=== PATIENT | male | born 1985 | race Caucasian/White ===

== ENCOUNTER 2021-03-21 12:19 | Emergency (ER) | payer OTHER ==
[2021-03-21] MEDS ORDERED: ZESTRIL10 M1 PO (12:29)
[2021-03-21] MEDS ORDERED: CLONIDINE HYDR0.1 MG PO (12:29)
[2021-03-21] MEDS ORDERED: PREDNISONE20 MG PO (13:12)
[2021-03-21 13:16] VITALS: BP 120/82
[2021-03-21] MEDS ORDERED: CYCLOBENZAPRINE10 M1 PO (13:20)
== END 2021-03-21 13:17 | disposition home or self-care (01) ==
LOC: ED 12:19
DX: G89.29 Other chronic pain (principal); M54.50 Low back pain, unspecified

== ENCOUNTER → 2021-05-14 | Outpatient (CLI) | payer BC ==
[~2021-05-14] MED LIST: CLONIDINE HYDR0.1 MG PO; CYCLOBENZAPRINE10 M1 PO; PREDNISONE20 MG PO; ZESTRIL10 M1 PO
[2021-05-14 13:31] LABS: POTASSIUM 4.1 mmol/L (3.5-5.1)
[2021-05-14 13:32] LABS: ALBUMIN 4.5 g/dL (3.5-5.0); CALCIUM 9.8 mg/dL (8.3-10.5); TOTAL PROTEIN 7.5 g/dL (6.4-8.3)
[2021-05-14 13:42] LABS: HEMOGLOBIN 17.3 g/dL (13.5-18.0); RED BLOOD COUNT 5.18 M/mm3 (4.20-5.60); WHITE BLOOD COUNT 5.2 K/mm3 (4.8-10.8)
[2021-05-14 13:43] LABS: MEAN CELL VOLUME 93 fl (78-100); MEAN CORPUSCULAR HEMOGLOBIN 33 pg (27-31); MEAN CORPUSCULAR HGB CONC 36 g/dL (33-37); MEAN PLATELET VOLUME 11.1 fl (7.4-10.4); PLATELET COUNT 199 K/mm3 (130-400); RED CELL DISTRIBUTION WIDTH 11.9 % (11.5-14.5)
[2021-05-14 13:45] LABS: BASO # 0.03 K/mm3 (0.02-0.10); EOS # 0.05 K/mm3 (0.04-0.40); LYMPH# 1.87 K/mm3 (1.50-4.00); MONO # 0.53 K/mm3 (0.20-0.80); NEU # 2.76 K/mm3 (1.40-6.50)
== END ==
LOC: LAB 09:48
PROVIDERS: Family Medicine
DX: Z00.00 Encounter for general adult medical examination without abnormal findings (principal); M51.36 Other intervertebral disc degeneration, lumbar region; E78.5 Hyperlipidemia, unspecified; R73.9 Hyperglycemia, unspecified

== ENCOUNTER → 2021-05-30 | Day surgery (SDC) | payer BC | LOC: MSO 07:25 | DX: K92.1 Melena (principal); K59.00 Constipation, unspecified; R19.7 Diarrhea, unspecified; Z79.899 Other long term (current) drug therapy | CPT/HCPCS: 00811; J2704; J7120 ==

== ENCOUNTER → 2022-06-26 | Outpatient (CLI) | payer OTHER | LOC: LAB 11:26 | DX: R63.5 Abnormal weight gain (principal) ==

== ENCOUNTER → 2022-12-10 | Outpatient (CLI) | payer OTHER | LOC: LAB 09:57 | DX: M25.50 Pain in unspecified joint (principal) ==

== ENCOUNTER → 2024-01-28 | Outpatient (CLI) | payer SELFPAY ==
[~2024-01-28] MED LIST changes: +DULOXETINE30 MG PO; +LOSARTAN POTASS1 TA1 PO
[2024-01-28 11:06] LABS: HEMATOCRIT 46.3 % (42.0-52.0); HEMOGLOBIN 16.6 g/dL (13.5-18.0)
== END ==
LOC: LAB 09:58
PROVIDERS: Nurse Practitioner
DX: E83.110 Hereditary hemochromatosis (principal)

== ENCOUNTER → 2024-02-11 | Outpatient (RCR) | payer OTHER ==
[2024-01-28 10:15] VITALS: BP 156/92
--- NOTE | 2024-01-28 12:08 | NUR ---
PT ARRIVED FOR OUTPATIENT PHLEBOTOMY. PT VERY NERVOUS. STATES HE HAS A NEEDLE PHOBIA. REQUESTS NUMBING UP THE IV SITE PRIOR TO INSERTION. ORDER OBTAINED AND LIDOCAINE TOPICAL JELLY APPLIED TO RT AC. #[id number] IV NEEDLE INSERTED ON FIRST ATTEMPT BY Xenia BOYD RN USING ASEPTIC TECHNIQUE. BLOOD DRAWN FROM IV FOR H&H PRIOR TO THERAPEUTIC PHLEBOTOMY AND TAKEN TO LAB. HGB 16.6 HCT 46.3. 500ML BLOOD TAKEN OFF FOR PHLEBOTOMY. PT MADELIN WELL. VSS. INT REMOVED AND PRESSURE BANDAGE APPLIED. INSTRUCTED PT TO REMOVE DRESSING IN 15 MINUTES. APPT SCHEDULED FOR NEXT WEEK. PT LEFT FACILITY AMBULATORY. NO DIZZINESS OR COMPLAINTS AT THIS TIME.
[2024-01-28 12:15] VITALS: BP 134/89
[2024-02-04 10:10] VITALS: BP 131/80
--- NOTE | 2024-02-04 11:00 | NUR ---
STARTED THERAPEUTIC PHLEBOTOMY AT 1050. BY 1100 WE HAD 300ML OF BLOOD IN BAG AND PT WAS NOT FEELING WELL. STATES HE IS NAUSEATED AND HE IS PALE AND DIAPHORETIC. BP 118/74. LAYED PT DOWN FLAT AND ELEVATED HIS LEGS. STOPPED PHLEBOTOMY. NOTIFIED DR MARY VARGAS AND RECEIVED ORDERS FOR NS IV BOLUS. PT STATES HE IS FEELING BETTER JUST A FEW MINUTES INTO THE IVF INFUSION. COLOR HAS RETURNED TO HIS FACE.
[2024-02-04 11:25] VITALS: BP 123/86
--- NOTE | 2024-02-04 11:38 | NUR ---
BP UP TO 123/86 WITH HEART RATE 80. PT FEELING BACK TO NORMAL FOLLOWING BOLUS OF 500ML NS OVER 20 MIN. DC'D INT. GAVE PT A CUP OF WATER TO DRINK ON THE WAY HOME. DENIES ANY DIZZINESS OR N/V. MADE NEXT APPT FOR 1 WEEK. WILL OBTAIN PRN ORDER FOR IVF. TOOK 300ML BLOOD FROM THERAPEUTIC PHLEBOTOMY TO LAB. PT LEFT HOSPITAL AMBULATORY.
[~2024-02-11] VITALS: Ht 172.7 cm; Wt 93.2 kg
[~2024-02-11] MED LIST changes: +Lidocaine 2% Jelly 5 GM TUBE TOP ONE; +Lidocaine 2% Jelly 5 GM TUBE TOP PRN; +Lidocaine 2% Jelly 5 GM TUBE TOP SCH; +NS 500 ML IV SCH
[2024-02-11 10:09] VITALS: BP 143/90
--- NOTE | 2024-02-11 11:04 | NUR ---
TIME OUT DONE AT 1054. STARTED THERAPEUTIC PHLEBOTOMY AT 1056.
--- NOTE | 2024-02-11 11:30 | NUR ---
TODAY'S HGB 15.6 HCT 42.9 TIME OUT DONE AT 1054. STARTED THERAPEUTIC PHLEBOTOMY AT 1056. APPLIED BP CUFF TO RT UPPER ARM AND ONLY PUMPED UP TO 40, PT DID NOT TOLERATE VERY WELL LAST WEEK, WHEN BLOOD CAME OUT FASTER. STOPPED PHLEBOTOMY AT 1115 WITH VOL OF 500ML COLLECTED. PT MADELIN WELL TODAY. BP 129/78 WITH HR 78 AFTER PHLEBOTOMY. DC'D INT AND APPLIED PRESSURE WRAP WITH INSTRUCTIONS TO REMOVE IT AFTER HE GETS HOME. PT DENIES ANY N/V, DIZZINESS, OR DISCOMFORT. LEFT FACILITY AMBULATORY . NEXT APPT MADE FOR NEXT WEEK.
[2024-02-11 11:36] VITALS: BP 129/78
== END ==
LOC: AMSURD
DX: E83.110 Hereditary hemochromatosis (principal)
CPT/HCPCS: J7040

== ENCOUNTER → 2024-03-04 | Outpatient (CLI) | payer OTHER ==
[~2024-03-04] VITALS: Ht 172.7 cm; Wt 93.2 kg
[~2024-03-04] MED LIST changes: -Lidocaine 2% Jelly 5 GM TUBE TOP PRN; -Lidocaine 2% Jelly 5 GM TUBE TOP SCH; -NS 500 ML IV SCH
[2024-03-04 10:13] VITALS: BP 139/87
[2024-03-04 10:51] LABS: HEMOGLOBIN 15.5 g/dL (13.5-18.0)
[2024-03-04 11:18] VITALS: BP 132/88
== END ==
LOC: AMSURD 10:00
PROVIDERS: Nurse Practitioner
DX: E83.110 Hereditary hemochromatosis (principal)

== ENCOUNTER → 2024-03-17 | Outpatient (CLI) | payer OTHER ==
[~2024-03-17] VITALS: Ht 172.7 cm; Wt 93.2 kg
[2024-03-17 14:27] LABS: HEMATOCRIT 43.8 % (42.0-52.0); HEMOGLOBIN 15.3 g/dL (13.5-18.0)
[2024-03-17 14:28] VITALS: BP 139/95
--- NOTE | 2024-03-17 15:05 | NUR ---
PT HERE FOR THERAPEUTIC PHLEBOTOMY. EDUCATION PROVIDED. BP 139/95 AND HGB 15.3 HCT 43.8 PRIOR TO PHLEBOTOMY. TIMEOUT AT 1436. STARTED PHLEBOTOMY AT 1438 AND STOPPED AT 1453. TOTAL VOL OF 502ML BLOOD WITHDRAWN. VS AFTER PHLEBOTOMY BP 128/82 HR 82. PT DENIES SYMPTOMS. INT DC'D. SITE WNL. APPLIED PRESSURE TO SITE FOR 5 MIN. PT LEFT FACILITY AMBULATORY. NEXT PHLEBOTOMY SCHEDULED FOR 1 WEEK.
== END ==
LOC: AMSURD 13:55
PROVIDERS: Internal Medicine
DX: E83.110 Hereditary hemochromatosis (principal)

== ENCOUNTER → 2024-03-24 | Outpatient (CLI) | payer OTHER ==
[~2024-03-24] VITALS: Ht 172.7 cm; Wt 93.2 kg
[2024-03-24 14:40] VITALS: BP 141/92
[2024-03-24 14:44] LABS: HEMATOCRIT 42.8 % (42.0-52.0); HEMOGLOBIN 14.9 g/dL (13.5-18.0)
== END ==
LOC: LAB 13:59
PROVIDERS: Internal Medicine
DX: E83.110 Hereditary hemochromatosis (principal)

== ENCOUNTER → 2024-03-31 | Outpatient (CLI) | payer OTHER ==
[~2024-03-31] VITALS: Ht 172.7 cm; Wt 93.2 kg
[2024-03-31 13:10] VITALS: BP 151/101
[2024-03-31 13:32] LABS: HEMATOCRIT 43.1 % (42.0-52.0); HEMOGLOBIN 15.3 g/dL (13.5-18.0)
[2024-03-31 13:50] VITALS: BP 141/100
--- NOTE | 2024-03-31 14:36 | NUR ---
PT HERE FOR THERAPEUTIC PHLEBOTOMY. HGB 15.3 HCT 43.1 BP 151/101 PRIOR TO PHLEBOTOMY. TIMEOUT DONE [id number]. STARTED PHLEBOTOMY AT 1336. STOPPED AT 1348. TOTAL VOL BLOOD WITHDRAWN 528ML. BP AFTER PHLEBOTOMY 141/100. PT MADELIN WELL . ASYMTOMATIC. INT DC'D AND PRESSURE APPLIED X5MIN. PRESSURE DRSG APPLIED. PT LEFT HOSPITAL AMBULATORY.
== END ==
LOC: LAB 12:50 → AMSURD 12:50
PROVIDERS: Internal Medicine
DX: E83.110 Hereditary hemochromatosis (principal)

== ENCOUNTER → 2024-04-07 | Outpatient (CLI) | payer OTHER ==
[~2024-04-07] VITALS: Ht 172.7 cm; Wt 93.2 kg
[2024-04-07 15:20] VITALS: BP 137/86
[2024-04-07 15:42] LABS: BASO # 0.03 K/mm3 (0.02-0.10); EOS # 0.03 K/mm3 (0.04-0.40); EOS % 0.6 % (0.0-4.0); HEMATOCRIT 41.8 % (42.0-52.0); HEMOGLOBIN 14.9 g/dL (13.5-18.0); LYMPH# 1.44 K/mm3 (1.50-4.00); MEAN CELL VOLUME 97 fl (78-100); MEAN CORPUSCULAR HEMOGLOBIN 34 pg (27-31); MEAN CORPUSCULAR HGB CONC 36 g/dL (33-37); MEAN PLATELET VOLUME 10.2 fl (7.4-10.4); MONO # 0.42 K/mm3 (0.20-0.80); NEU # 3.21 K/mm3 (1.40-6.50); PLATELET COUNT 207 K/mm3 (130-400); RED BLOOD COUNT 4.33 M/mm3 (4.20-5.60); RED CELL DISTRIBUTION WIDTH 11.6 % (11.5-14.5); WHITE BLOOD COUNT 5.1 K/mm3 (4.8-10.8)
[2024-04-07 15:44] LABS: ALBUMIN 4.3 g/dL (3.5-5.0)
[2024-04-07 15:46] LABS: CALCIUM 9.2 mg/dL (8.3-10.5)
[2024-04-07 15:47] LABS: TOTAL PROTEIN 6.9 g/dL (6.4-8.3)
[2024-04-07 15:49] LABS: TOTAL BILIRUBIN 0.4 mg/dL (0.2-1.2)
--- NOTE | 2024-04-07 17:09 | NUR ---
PT HERE FOR THERAPEUTIC PHLEBOTOMY. HGB 14.9 HCT 41.8, FERRITIN 140 PRIOR TO PHLEBOTOMY. BP 137/86 PRIOR TO PROCEDURE. EDUCATION PROVIDED. TIMEOUT DONE AT 1635. STARTED PHLEBOTOMY AT 1636. STOPPED AT 1655. TOTAL BLOOD WITHDRAWN 511ML. PT MADELIN WELL. REMAINS ASYMPTOMATIC. BP 129/85.DC'D INT. HELD PRESSURE X5MIN. APPLIED PRESSURE DRSG. PT LEFT FACILITY AMBULATORY.
== END ==
LOC: AMSURD 14:57
DX: E83.110 Hereditary hemochromatosis (principal)

== ENCOUNTER → 2024-04-21 | Outpatient (CLI) | payer OTHER ==
[~2024-04-21] VITALS: Ht 172.7 cm; Wt 93.2 kg
[2024-04-21 14:23] VITALS: BP 140/98
[2024-04-21 14:46] LABS: HEMATOCRIT 45.6 % (42.0-52.0); HEMOGLOBIN 16.2 g/dL (13.5-18.0)
[2024-04-21 15:15] VITALS: BP 128/87
== END ==
LOC: LAB 04-14 09:06
PROVIDERS: Internal Medicine
DX: E83.110 Hereditary hemochromatosis (principal)

== ENCOUNTER → 2024-05-05 | Outpatient (CLI) | payer OTHER ==
[~2024-05-05] VITALS: Ht 172.7 cm; Wt 93.2 kg
[2024-05-05 14:05] VITALS: BP 111/88
[2024-05-05 14:29] LABS: HEMATOCRIT 45.6 % (42.0-52.0); HEMOGLOBIN 15.9 g/dL (13.5-18.0)
[2024-05-05 15:17] VITALS: BP 136/89
--- NOTE | 2024-05-05 15:19 | NUR ---
PT HERE FOR THERAPEUTIC PHLEBOTOMY. HGB 15.9, HCT 45.6 PRIOR TO PHLEBOTOMY. VSS. EDUCATION PROVIDED. TIMEOUT PERFORMED AT 1439. PROCEDURE STARTED AT 1442. STOPPED AT 1454. TOTAL VOLUME OF BLOOD REMOVED = 500ML. POST PROCEDURE BP 136/89 WITH HR 126. PT DENIES ANY N/V, LIGHTHEADEDNESS. DC'D INT. HELD PRESSURE X5MIN AND APPLIED COBAN OVER 2X2. LEFT FACILITY AMBULATORY. NEXT APPT IN 2 WEEKS WILL INCLUDE DRAWING LAB FOR FERRITIN WELL H&H
== END ==
LOC: AMSURD 13:50
PROVIDERS: Internal Medicine
DX: E83.110 Hereditary hemochromatosis (principal)

== ENCOUNTER → 2024-05-19 | Outpatient (CLI) | payer OTHER ==
[~2024-05-19] VITALS: Ht 172.7 cm; Wt 93.2 kg
[2024-05-19 14:23] VITALS: BP 128/90
[2024-05-19 14:41] LABS: BASO # 0.03 K/mm3 (0.02-0.10); EOS # 0.05 K/mm3 (0.04-0.40); EOS % 0.8 % (0.0-4.0); HEMATOCRIT 41.6 % (42.0-52.0); HEMOGLOBIN 14.2 g/dL (13.5-18.0); LYMPH# 1.95 K/mm3 (1.50-4.00); MEAN CELL VOLUME 91 fl (78-100); MEAN CORPUSCULAR HEMOGLOBIN 31 pg (27-31); MEAN CORPUSCULAR HGB CONC 34 g/dL (33-37); MEAN PLATELET VOLUME 10.3 fl (7.4-10.4); MONO # 0.66 K/mm3 (0.20-0.80); NEU # 3.23 K/mm3 (1.40-6.50); PLATELET COUNT 254 K/mm3 (130-400); RED BLOOD COUNT 4.58 M/mm3 (4.20-5.60); RED CELL DISTRIBUTION WIDTH 11.7 % (11.5-14.5); WHITE BLOOD COUNT 5.9 K/mm3 (4.8-10.8)
--- NOTE | 2024-05-19 15:40 | NUR ---
HELD THERAPEUTIC PHLEBOTOMY TODAY SINCE FERRITIN WAS 38. DC'D INT. PT LEFT FACILITY AMBULATORY.
== END ==
LOC: AMSURD 14:01
PROVIDERS: Internal Medicine
DX: E83.110 Hereditary hemochromatosis (principal)

== ENCOUNTER → 2024-07-28 | Outpatient (CLI) | payer OTHER ==
[~2024-07-28] VITALS: Ht 172.7 cm; Wt 93.2 kg
[2024-07-28 12:10] VITALS: BP 137/82
[2024-07-28 12:43] LABS: HEMATOCRIT 44.8 % (42.0-52.0); HEMOGLOBIN 15.4 g/dL (13.5-18.0); MEAN CELL VOLUME 85 fl (78-100); MEAN CORPUSCULAR HEMOGLOBIN 29 pg (27-31); MEAN CORPUSCULAR HGB CONC 34 g/dL (33-37); PLATELET COUNT 185 K/mm3 (130-400); RED BLOOD COUNT 5.26 M/mm3 (4.20-5.60); RED CELL DISTRIBUTION WIDTH 14.6 % (11.5-14.5); WHITE BLOOD COUNT 5.9 K/mm3 (4.8-10.8)
[2024-07-28 13:03] VITALS: BP 138/77
--- NOTE | 2024-07-28 13:14 | NUR ---
PATIENT HERE FOR THERAPEUTIC PHLEBOTOMY. VITALS OBTAINED. CINDY REPORTS NOT NEEDING FERRITIN LEVEL DRAWN TODAY, PHSYICIAN REQUESTS FERRITIN LEVEL DRAWN CLOSER TO FOLLOW UP APPT. 18G TO RIGHT AC, LABS DRAWN. TIME OUT PERFORMED AT 1245. PROCEDURE STARTED AT 1247 AND COMPLETED AT 1258. TOLERATED WELL. POST VITALS OBTAINED. RESCHEDULED 4 WEEKS OUT.
[2024-07-28 13:20] LABS: LYMPHOCYTE 15 % (20-51); MONOCYTE 6 % (3-10); NEUTROPHILS 78 % (42-75)
== END ==
LOC: AMSURD 11:46
PROVIDERS: Internal Medicine
DX: E83.110 Hereditary hemochromatosis (principal)